=== PATIENT | female | born 1955 | race Caucasian/White ===

== ENCOUNTER 2017-07-01 09:54 | Day surgery (SDC) | payer OTHER ==
[~2017-07-01] VITALS: Ht 162.6 cm; Wt 90.9 kg
[2017-07-01] VITALS (8 sets, daily range): BP systolic 112–132; BP diastolic 56–87; PULSE 72–84; RESP 16–20; TEMP 98.2–98.3; O2SAT 93–97
[2017-07-01] MEDS ORDERED: ALPR.25 PO (11:05)
[2017-07-01] MEDS ORDERED: SODIUM CHLORIDE 2 ML FLUSH PRN IV FLUSH (12:00)
[2017-07-01] MEDS ORDERED: SODIUM CHLOR 0.9% 1000 ML IV SCH (12:00)
[2017-07-01 12:07] LABS: AUTOMATED NEUTROPHIL # 5.8 TH/MM3 (1.8-7.7); BASOPHIL % 0.5 % (0.0-2.0); EOSINOPHIL # 0.2 TH/MM3 (0-0.4); EOSINOPHIL % 2.4 % (0.0-4.0); HEMATOCRIT 38.9 % (35.0-46.0); HEMO FLAGS DIFF FINAL; LYMPH % 20.2 % (9.0-44.0); LYMPHOCYTE # 1.7 TH/MM3 (1.0-4.8); MEAN CELL VOLUME 92.5 FL (80.0-100.0); MEAN CORPUSCULAR HGB CONC 33.5 % (32.0-36.0); MONO % 7.3 % (0.0-8.0); NEUT % 69.6 % (16.0-70.0); PLATELET COUNT 304 TH/MM3 (150-450); RED BLOOD COUNT 4.21 MIL/MM3 (4.00-5.30); RED CELL DISTRIBUTION WIDTH 12.3 % (11.6-17.2); WHITE BLOOD COUNT 8.3 TH/MM3 (4.0-11.0)
[2017-07-01 12:16] LABS: APTT (PATIENT) 29.3 SEC (24.3-30.1); INTERNATIONAL NORMALIZED RATIO 0.9 RATIO; PROTHROMBIN TIME - PATIENT 10.4 SEC (9.8-11.6)
[2017-07-01] MEDS ORDERED: fentaNYL CITRATE 250 MCG/5 ML AMP ONE (13:09)
[2017-07-01] MEDS ORDERED: MIDAZOLAM HCL 2 MG/2 ML VIAL ONE (13:09)
[2017-07-01] MEDS ORDERED: LIDOCAINE HCL 1% 20 ML VIAL ONE (13:22)
--- NOTE | 2017-07-01 14:11 | PD.RAD ---
Post CT Procedure Prog Note Pre Procedure Diagnosis: (1) Liver lesion, right lobe Post Procedure Diagnosis: (1) Liver lesion, right lobe Procedure Date: Jul 01, 2017 Supervising Radiologist: Prabhjot Perry Estimated blood loss: <5 ml Plan of Activity Patient to Unit: [facility] Patient Condition: Good Additional Comments: 4 x 20g cores. See PACS Report for procedural detail/treatment Prabhjot Perry MD Jul 01, 2017 14:11
[2017-07-01] MEDS ORDERED: GELATIN 12 MM/7 MM FOAM ONE (14:58)
--- NOTE | 2017-07-01 15:11 | RADRPT ---
EXAM DATE/TIME: 07/01/2017 13:42 [facility] COMPARISON: No previous studies available for comparison. INDICATIONS : History of incidentally discovered mass on ultrasound and corresponding abnormality on MRI exam. Revi ew of MRI exam demonstrates an ill-defined segment 8 wedge-shaped signal abnormality. Liver is not ci rrhotic and there is no evidence for portal vein involvement. SEDATION TIME: 40 minutes BIOPSY SITE: liver MEDICATION(S): 1.) 3 mg midazolam (Versed) IV 2.) 150 mcg fentanyl (Sublimaze) IV DEVICE(S): 1.) 18 gauge Reddy blunt needle 15cm 2.) 20 gauge Temno core biopsy needle 20cm MEDICAL HISTORY : Fatty liver SURGICAL HISTORY : None. ENCOUNTER: Initial ACUITY: 1 day PAIN SCORE: 0/10 LOCATION: upper quadrant A total of four core specimen(s) were obtained and sent to the laboratory for pathologic evaluation. PROCEDURE: 1. CT guided liver mass biopsy. 2. Conscious sedation with continuous EKG and oximetry monitoring. Prior to the procedure informed consent was obtained. Any appropriate prior imaging studies were rev iewed. Using automated exposure control and adjustment of the mA and/or kV according to patient size, radiat ion dose was kept as low as reasonably achievable to obtain optimal diagnostic quality images. DICOM format image data is available electronically for review and comparison. The site was prepped in a sterile fashion. Full sterile technique was used, including cap, mask, quang rile gloves and gown and a large sterile sheet. Hand hygiene and 2% chlorhexidine and/or betadine/al cohol prep was utilized per protocol for cutaneous antisepsis. The skin and subcutaneous tissues wer e infiltrated with local anesthetic solution. With CT guidance the previously identified target was localized. Biopsy was performed using the presc ribed needle as above. Adequate hemostasis was obtained with compression at the puncture site. Follow-up CT scan reveals no hemorrhage. The patient tolerated the procedure well and there were no complications. The patient was returned to the Radiology Outpatient Unit in stable condition. CONCLUSION: 1. Technically successful CT-guided biopsy of ill-defined hyperdense lesion in segment 8 of the liver . Prabhjot Perry MD on July 01, 2017 at 15:04 Board Certified Radiologist. This report was verified electronically.
[2017-07-01] MEDS ORDERED: SODIUM CHLORIDE 2 ML FLUSH BID IV FLUSH SCH (21:00)
== END 2017-07-01 18:20 | disposition home or self-care (01) ==
LOC: HRAD 09:54 → HRIP 09:55 → HRAD 18:20
PROVIDERS: ATTEND Internal Medicine Hematology & Oncology
DX: D18.09 Hemangioma of other sites (principal); K73.9 Chronic hepatitis, unspecified; K76.0 Fatty (change of) liver, not elsewhere classified; E83.19 Other disorders of iron metabolism; N28.1 Cyst of kidney, acquired; R16.0 Hepatomegaly, not elsewhere classified; K76.89 Other specified diseases of liver
CPT/HCPCS: 47000; 77012; 85025; 85610; 85730; 88307; 88313; J2250; J3010; J7030

== ENCOUNTER 2017-09-20 10:18 | Emergency (ER) | payer OTHER ==
[~2017-09-20] VITALS: Ht 162.6 cm; Wt 87.0 kg
[~2017-09-20 10:18] MED LIST: ALPR.25 PO
[2017-09-20 10:25] VITALS: BP 112/72; PULSE 70; RESP 16; TEMP 98.2; O2SAT 96
--- NOTE | 2017-09-20 12:24 | PD ---
HPI Chief Complaint: Fall Time Seen by Provider: 12:13 Travel History International Travel<30 days: No Contact w/Intl Traveler<30days: No Traveled to known affect area: No History of Present Illness HPI The patient is a 61-year-old female who presents emergency department for headache after trip and fall. The patient tripped and fell on some uneven pavement earlier today, fell forward, landing on her knees, then her hands, then striking her head on the pavement. The patient states she has a small abrasion to the volar aspect of the left wrist. She does complain of a headache is located over the right frontal aspect of her head and radiates to the posterior left aspect of the head. She denies any photophobia, nausea, vomiting, or associated neck pain. She denies any focal deficits. The headache is moderate, exacerbated after striking her head against the concrete, and there are no current alleviating factors. The patient denies taking any anticoagulants or blood thinners on a daily basis. PFSH Past Medical History Anxiety: Yes Cancer: No Cardiovascular Problems: No Diabetes: No Diminished Hearing: No Endocrine: No Gastrointestinal Disorders: Yes (Liver) Genitourinary: No Hepatitis: No Hiatal Hernia: No Immune Disorder: No Musculoskeletal: Yes (hx right wrist fx) Neurologic: No Psychiatric: Yes (Anxiety) Reproductive: No Respiratory: Yes (bronchitis) Immunizations Current: Yes Thyroid Disease: No Tetanus Vaccination: < 5 Years Influenza Vaccination: Yes ?: Not Menopausal: Yes Past Surgical History AICD: No Endocrine Surgery: No Eye Surgery: Yes Gynecologic Surgery: Yes (PCOS, endometrial surg) Joint Replacement: No Pacemaker: No Other Surgery: Yes Social History Alcohol Use: No Tobacco Use: No Substance Use: No Allergies-Medications (Allergen,Severity, Reaction): Coded Allergies: No Known Allergies (Unverified Adverse Reaction, Unknown, 09/20/17) Reported Meds & Prescriptions Reported Meds & Active Scripts Active No Active Prescriptions or Reported Medications Review of Systems Except as stated in HPI: all other systems reviewed are Neg Eyes: No: Blurred Vision, Visual changes HENT: Positive: Headaches, Lightheadedness, No: Neck Pain Cardiovascular: No: Chest Pain or Discomfort Respiratory: No: Shortness of Breath Gastrointestinal: No: Nausea, Vomiting, Abdominal Pain Neurologic: Positive: Dizziness, Headache Physical Exam Narrative GENERAL: Awake, alert, pleasant 61-year-old female who appears her stated age and is in no acute respiratory distress. SKIN: Focused skin assessment warm/dry. Superficial abrasion over the volar aspect of the left wrist. HEAD: Atraumatic. Normocephalic. No obvious cephalic hematoma. EYES: Pupils equal and round. Pupils are 3 mm bilateral and reactive. EOMs are intact. Very punctate, small subconjunctival hemorrhage on the medial aspect the left conjunctiva. ENT: No nasal bleeding or discharge. Mucous membranes pink and moist. NECK: Trachea midline. No JVD. No tenderness of the cervical vertebrae. CARDIOVASCULAR: Regular rate and rhythm. No murmur appreciated. RESPIRATORY: No accessory muscle use. Clear to auscultation. Breath sounds equal bilaterally. GASTROINTESTINAL: Abdomen soft, non-tender, nondistended. MUSCULOSKELETAL: No obvious deformities. No clubbing. No cyanosis. No edema. NEUROLOGICAL: Awake and alert. No obvious cranial nerve deficits. Motor grossly within normal limits. Normal speech. Nonfocal. Oriented 4. Follows commands without difficulty. PSYCHIATRIC: Appropriate mood and affect; insight and judgment normal. Data Data Last Documented VS Vital Signs Date Time Temp Pulse Resp B/P (MAP) Pulse Ox O2 Delivery O2 Flow Rate FiO2 09/20/17 10:25 98.2 70 16 112/72 (85) [address] Brain W/O Iv Contrast(Rout) (09/20/17 ) Acetaminophen (Tylenol) (09/20/17 12:30) Ed Discharge Order (09/20/17 13:20) MDM Medical Decision Making Medical Screen Exam Complete: Yes Emergency Medical Condition: Yes Medical Record Reviewed: Yes Interpretation(s) Last Impressions Head CT 09/20/17 0000 Signed Impressions: Service Date/Time: Wednesday, September 20, 2017 12:47 - CONCLUSION: No acute intracranial disease. Deandre Salvador MD Differential Diagnosis Differential diagnosis includes closed head injury, postconcussive syndrome, posttraumatic headache, intracranial hemorrhage, subdural hemorrhage, epidural hemorrhage, subarachnoid hemorrhage, cerebral contusion. Narrative Course CT of the brain was obtained. The patient was administered Tylenol 650 mg orally for pain. [address] of the brain is negative. The patient was advised she may have lightheadedness, dizziness, headaches, nausea for several days secondary to postconcussive syndrome and posttraumatic headache. Patient will be prescribed ibuprofen. She is stable for outpatient follow-up. She will be provided a copy of her CT results at discharge. Diagnosis Primary Impression: Closed head injury Qualified Codes: S09.90XA - Unspecified injury of head, initial encounter Patient Instructions: General Instructions Additional Instructions: Medication as directed. Follow-up with your primary physician. Return if symptoms worsen or progress. Please provide a patient a copy of her CT results at discharge. Med/Other Pt SpecificInfo: Prescription(s) given Scripts Ibuprofen (Ibuprofen) 400 Mg Tab 400 MG PO Q6H Y for PAIN SCALE 1 TO 10, #15 TAB 0 Refills Prov: Franklyn Forte MD 09/20/17 Disposition: 01 DISCHARGE HOME Condition: Stable Franklyn Forte MD Sep 20, 2017 12:24
[2017-09-20] MEDS ORDERED: ACETAMINOPHEN 325 MG TAB PO ONE (12:30)
--- NOTE | 2017-09-20 13:01 | RADRPT ---
EXAM DATE/TIME: 09/20/2017 12:47 [facility] COMPARISON: No previous studies available for comparison. INDICATIONS : Fell and hit right side of head. Dizziness and cephalgia. RADIATION DOSE: 32.87 CTDIvol (mGy) MEDICAL HISTORY : None SURGICAL HISTORY : None. ENCOUNTER: Initial ACUITY: 1 day PAIN SCALE: 4/10 LOCATION: Right cranial TECHNIQUE: Multiple contiguous axial images were obtained of the head. Using automated exposure control and adj ustment of the mA and/or kV according to patient size, radiation dose was kept as low as reasonably a chievable to obtain optimal diagnostic quality images. DICOM format image data is available electro nically for review and comparison. FINDINGS: CEREBRUM: The ventricles are normal for age. No evidence of midline shift, mass lesion, hemorrhage or acute in farction. No extra-axial fluid collections are seen. POSTERIOR FOSSA: The cerebellum and brainstem are intact. The 4th ventricle is midline. The cerebellopontine angle i s unremarkable. EXTRACRANIAL: The visualized portion of the orbits is intact. SKULL: The calvaria is intact. No evidence of skull fracture. CONCLUSION: No acute intracranial disease. Deandre Salvador MD on September 20, 2017 at 12:59 Board Certified Radiologist. This report was verified electronically.
[2017-09-20] MEDS ORDERED: IBUP1TAB5 PO (13:23)
[2017-09-20 13:41] VITALS: BP 120/71
== END 2017-09-20 13:43 | disposition home or self-care (01) ==
LOC: NEPD 10:18
DX: S09.90XA Unspecified injury of head, initial encounter (principal); S60.812A Abrasion of left wrist, initial encounter; F41.9 Anxiety disorder, unspecified; W01.0XXA Fall on same level from slipping, tripping and stumbling without subsequent striking against object, initial encounter
CPT/HCPCS: 70450; 99285